=== PATIENT | male | born 1990 | race Caucasian/White ===

== ENCOUNTER 2025-02-01 12:21 | Emergency (ER) | payer OTHER, SELFPAY ==
[2025-02-01 12:26] VITALS: BP 118/73; PULSE 98; RESP 16; TEMP 36.7; O2SAT 99
--- NOTE | 2025-02-01 12:26 | ED.URI ---
HPI - URI/Sore Throat General Chief Complaint: Upper Respiratory Infection Stated Complaint: Sore Throat Time Seen by Provider: 02/01/25 12:35 Source: patient Mode of arrival: ambulatory Limitations: no limitations History of Present Illness HPI Narrative: Manjinder is a 34-year-old male patient presenting to the clinic today with complaints of sore throat, nasal congestion, productive cough, and feeling feverish. Denies any known sick contacts. Denies any shortness of breath. Has been using Vicks vapo and acetaminophen. Related Data Home Medications ?Medication ?Instructions ?Recorded ?Confirmed ?Last Taken ?Type lisdexamfetamine 30 mg capsule mg 02/01/25 Unknown History (Vyvanse) Allergies Allergy/AdvReac Type Severity Reaction Status Date / Time No Known Allergies Allergy Verified 02/01/25 12:32 Review of Systems Review of Systems: Pertinent positives per HPI. Patient denies any fever, chills, rash, headache, visual changes, dizziness, cough, shortness of breath, chest pain, palpitations, nausea, vomiting, diarrhea, constipation, abdominal pain, or any urinary issues. PMFSH Comments At the time of my signature, I reviewed and agree with the nursing past medical, surgical, social, and family history. There is no relevant family history pertinent to the patient complaint. Exam Narrative: General: Well-developed, well nourished, in no apparent distress Head: Normocephalic, atraumatic Eyes: Pupils equally round and reactive to light bilaterally, EOM intact, sclera and conjunctive clear, no discharge, lids normal Ears: TMs intact and clear, ear canals clear, no drainage, grossly hearing normal. Nose: Nares patent, clear nasal discharge, no inflammation, no sinus tenderness. Mouth: Oral pharynx red with bilateral tonsillar enlargement without lesions or masses, good dentition, MMM. Neck: Supple, trachea midline, no enlargement of anterior or posterior cervical nodes, no thyroid masses or goiter palpable. Cardio: Regular rate and rhythm, s1 and s2 normal, no murmur appreciated. Resp: Clear to auscultation bilaterally, no rhonchi, rales, wheezing or rubs Course Course Emergency Course: Portions of this record may have been created with voice recognition software. Level of Care: Express Care Visit Vital Signs Vital signs: Vital Signs Temperature 36.7 C 02/01/25 12:26 Pulse Rate 98 02/01/25 12:26 Respiratory Rate 16 02/01/25 12:26 Blood Pressure 118/73 02/01/25 12:26 Pulse Oximetry 99 02/01/25 12:26 Oxygen Delivery Room Air 02/01/25 12:26 Temperature 36.7 C 02/01/25 12:26 Pulse Rate 98 02/01/25 12:26 Respiratory Rate 16 02/01/25 12:26 Blood Pressure 118/73 02/01/25 12:26 Pulse Oximetry 99 02/01/25 12:26 Oxygen Delivery Room Air 02/01/25 12:26 Vital signs reviewed MDM - URI/Sore Throat MDM Narrative Medical decision making narrative: At the time of visit patient is resting comfortably on the exam table. Patient appears to be nontoxic. Labs: COVID, influenza, and strep test were performed in the clinic today. Strep test was negative. We will send strep for culture. Plan: I suspect patient has URI/pharyngitis/viral syndrome. Supportive measures were discussed with the patient and they voiced understanding discharge instructions and agrees to treatment plan. Return precautions reviewed Differential Diagnosis Differential diagnosis: Likely upper respiratory infection, otitis media, sinusitis, viral infection, bronchitis, influenza, pharyngitis and other (COVID) Discharge Plan Discharge Clinical Impression: Upper respiratory infection Qualifiers: URI type: unspecified URI Qualified Code(s): J06.9 - Acute upper respiratory infection, unspecified Pharyngitis Qualifiers: Pharyngitis/tonsillitis etiology: unspecified etiology Qualified Code(s): J02.9 - Acute pharyngitis, unspecified Patient Disposition: Home Condition: Stable Instructions: Antibiotic Form, Pharyngitis (ED), Viral Syndrome (ED), Cold Symptoms (ED) Additional Instructions: COVID, influenza, and strep test were all negative in the clinic today. We will send strep for culture if this comes back positive we will contact him place you on antibiotics at this time. May take DayQuil/NyQuil for cold/flu symptoms Increase fluids and stay well hydrated Tylenol/motrin for pain/fever Flonase and OTC antihistamines as directed Vicks vapor rub to open sinuses Sinus rinses for congestion Cepacol spray, cough drops, throat lozenges, warm tea with honey/lemon, gargle salt water to soothe throat BRAT diet for diarrhea Clear liquids x 24 hours then advance as tolerated for nausea/vomiting Go to the ED if you develop a worsening in your condition- high fever not controlled by Tylenol or Motrin, dehydration, weakness, lethargy, shortness of breath, or chest pain. Follow up with your PCP in 3-5 days if symptoms persist. Patient Language: Kazakh Prescriptions: No Action lisdexamfetamine [Vyvanse] 30 mg capsule Follow-up/Referrals: [facility], [Primary Care Provider] - Stand Alone Forms: Work/School Release IP Time of Disposition: 12:54 Quality NIHSS Nursing Documentation ED NIHSS nursing documentation: reviewed/agree
[2025-02-01 13:00] LABS: EDCOVIDSCREEN Negative (Negative); EDINFLUASCREEN Negative (Negative); EDINFLUBSCREEN Negative (Negative); EDSTREPNEGPOS1 Negative (Negative)
--- OUTSIDE RECORDS SUMMARY | 2025-02-01 14:17 | XMS_ITS | Clinical Summary ---
Author Organization [facility] Address [address] [place] [address] Care Team Providers Care Last Scourer Name Role Phone Jerrell Chen Primary Care Provide r Sandor Gilliam MD Unavailable [phone] Allergies No known active allergies Medications buPROPion XL (WELLBUTRIN XL) 300 mg 24 hr tabletIndicatio ns:Anxiety with Depression Take 1 tablet (300 mg total) by mouth every morning Active benzoyl peroxide 5 % external liquid Apply topically as needed (acne) 4 Active testosterone cypionate (DEPO-TESTOTERO NE) 200 mg/mL injection Inject 1 mL (200 mg total) into the muscle as instructed every 14 (fourteen) days Active ibuprofen (ADVIL,MOTRIN) 600 mg tablet Take 1 tablet (600 mg total) by mouth every 8 (eight) hours as needed for pain 20 tablet 1 4 Active oxyCODONE (ROXICODONE) 5 mg immediate release tabletIndicatio ns:Pain Take 1 tablet (5 mg total) by mouth every 8 (eight) hours as needed for pain 5 tablet 4 Active Active Problems Problem Noted Date Diagnosed Date Admission for vasectomy 03/30/2024 Vasectomy evaluation 03/28/2024 Overview (03/28/2024): 03/28/24: NC. Vasectomy evaluation. Sleep apnea 02/29/2024 Surgical History Surgery Date Site/Laterality Comments HERNIA REPAIR 08/24/2010 - 08/23/2011 Medical History Medical History Date Comments Sleep apnea 02/29/2024 Family History Medical History Relation Name Comments Anesthesia problems Neg Hx Social History Tobacco Use Types Packs/Day Years Used Date Smoking Tobacco: Never Smokeless Tobacco: Former Chew Tobacco Cessation:Counseling Given: Not Answered AUDIT-C Answer Date Recorded Q1: How often do you have a drink containing alcohol? 4 or more times a week 04/14/2024 Q2: How many drinks containi ng alcohol do you have on a typical day when you are drinking? 3 or 4 Q3: How often do you have si x or more drinks on one occasion? Monthly 04/14/2024 Personal Safety Answer Date Recorded Have you ever been in or are you currently in a harmful physical or emotional relationship or is someone making you feel afraid or unsafe? 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 Gender Identity Not on file Sexual Orientation Not on file Obstetrics History Last Filed Vital Signs Vital Sign Reading Time Taken Comments Blood Pressure 125/63 05/03/2024 8:30 AM CDT Pulse 69 05/03/2024 8:40 AM CDT Temperature 36.2 C (97.2 F) 05/03/2024 8:40 AM CDT Respiratory Rate 37 05/03/2024 8:40 AM CDT Oxygen Saturation 98% 05/03/2024 8:40 AM CDT Inhaled Oxygen Concentration - - Weight 109 kg (240 lb 3.2 oz) 05/03/2024 6:29 A M CDT Height 188 cm (6' 2.02) 05/03/2024 6:29 AM CDT Body Mass Index 30.83 05/03/2024 6:29 AM CDT Plan of Treatment Health Maintenance Due Date Last Done Comments Depression Screening 1991 Hepatitis C Screening 1991 Regular Well Visit/Exam 18-64 2009 Varicella Vaccines (2 of 2 - 13+ 2-dose series) 06/24/2010 02/01/2009 Covid-19 Vaccine ( season) 2024 05/13/2021, 04/22/2021 Influenza Vaccine (Season Ended) 2025 06/08/2021, 06/02/2020, 07/08/2019, Additional history exists DTaP/Tdap/Td Vaccine (3 - Td or Tdap) 03/15/2029 03/15/2019, 01/30/2009 Hepatitis B Screening Completed 02/01/2009 HPV Vaccines Aged Out No longer eligi ble based on patient's age to complete this topic Pneumococcal vaccine <65 Aged Out No longer eligible based on patient's age to complete this topic Insurance [facility] Care Teams Last Scourer Relationship Specialty Start Date End Date Jerrell Chen PA [address] [place] [address] PCP - General Physician Facialist 03/22/24 Sandor Gilliam MD [address] [place] [address] Consulting Physician Urology 05/03/24
--- OUTSIDE RECORDS SUMMARY | 2025-02-01 14:17 | XMS_ITS | Referral Summary ---
Author Organization [facility] Address [address] [place] [address] Care Team Providers Care Energy Conservation Director Name Role Phone Jerrell Chen Primary Care Provide r Sandor Gilliam MD Unavailable [phone] Allergies No known active allergies Medications buPROPion [...] 03/28/24: NC. Vasectomy evaluation. 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 Gender Identity Not on file Sexual Orientation Not on file Last Filed Vital Signs Vital Sign Reading Time Taken Comments Blood Pressure 125/63 05/03/2024 8:30 AM CDT Pulse 69 05/03/2024 8:40 AM CDT Temperature 36.2 C (97.2 F) 05/03/2024 8:40 AM CDT Respiratory Rate 37 05/03/2024 8:40 AM CDT Oxygen Saturation 98% 05/03/2024 8:40 AM CDT Inhaled Oxygen Concentration - - Weight 109 kg (240 lb 3.2 oz) 05/03/2024 6:29 AM CDT Height 188 cm (6' 2.02) 05/03/2024 6:29 AM CDT Body Mass Index 30.83 05/03/2024 6:29 AM CDT Plan of Treatment Not on file Insurance [facility] Care Teams Energy Conservation Director Relationship Specialty Start Date End Date Jerrell Chen PA [address] [place] [address] PCP - General Physician Family Coach 03/22/24 Sandor Gilliam MD [address] [place] [address] Consulting Physician Urology 05/03/24
--- OUTSIDE RECORDS SUMMARY | 2025-02-01 14:17 | XMS_ITS | Data Portability ---
Author Organization [place] [facility], Main Office Address [address] [place] [address] Assessment Encounter Date Assessment Date Assessment LastModified by Organization Details LastModified Time 02/29/2024 02/29/2024 Assessment: KEITH PLMD Hypoventilation Plan: The following were reviewed and explained to the patient: primary care/referral note General information on sleep disordered breathing, evaluation of sleep disordered breathing, treatment with PAP therapy, and living with PAP therapy were covered. Chapter 1 of educational DVD was shown. PSG is medically necessary to determine the degree of and management of sleep apnea. We discussed with the patient the impact of weight on: Sleep disordered breathing Low back pain We discussed with the patient the benefit of PAP therapy on: Sleep disordered breathing Anxiety Educated the patient on sleep hygiene measures. Relaxing rituals to rest easy, understanding foods with positive and negative impact on sleep, creating a peaceful sleep environment, timing of exercise, using herbal sleep aids, and practicing sleep-friendly meditation were covered. To determine how much sleep is needed, the patient will assess where he falls on the spectrum, examine what lifestyle factors such as work schedules and stress are affecting the quality and quantity of sleep. In general, adults need 7-9 hours of sleep. Educated the patient regarding foods that promote sleep. These include but are not limited to cherries, bananas, toast, oatmeal, and warm milk. Educated the patient regarding foods and drinks to avoid before bedtime. These include but are not limited to aged cheese, chocolate, spicy foods, tomato-based sauces, soy, ginseng tea and processed meat. Advocated influenza vaccination annually and pneumonia vaccination PATRIA. Advocated weight loss through diet and exercise. Patient's ideal body weight according to height and gender is up to 205 lbs. Encouraged patient to adjust caloric intake to maintain/achieve ideal body weight, emphasizing on fruits, vegetables, whole grains, and fat-free or low-fat products. These include lean meats, poultry, fish, beans, eggs, and nuts and foods that are low in saturated fats, trans-fats, cholesterol, salt (sodium), and glycemic index. Stressed the importance of regular exercise up to the patient's capacity limits. In this case, we recommend 20 min daily walking, 2 days a week of resistance training. Patient to monitor BP daily and bring records to PCP for further management. Follow-up: 1 week after diagnostic sleep study Not available 02/29/2024 10:22:53 05/11/2024 05/11/2024 Assessment: Early REM onset Moderate OSHS, HI = 23 Plan: The following were reviewed and explained to the patient: primary care/referral note [facility] split night sleep study 05/09/24 sleep onset = 1.5 minutes, REM onset = 44.5 minutes, HI = 19, REM HI = 23, supine HI = 25, Temitope small/mediun Nelly full face mask @ 12-20 cmH2O, PLMI = 0.0 Educated the patient on problems and solutions associated with positive airway pressure (PAP) use. Difficulty tolerating pressure, mask leaks, intolerance of interface, nasal congestion, claustrophobic response, dry mouth, and unintentional mask removal during sleep were covered. Patient experiences claustrophobic response. Patient will practice wearing PAP mask daily while awake and undergo PAP desensitization. We will check fit of patient's mask and provide a sleeker alternative as necessary. Dry mouth is a normal occurrence for people who just start out on PAP therapy because they are not used to air blowing in to the throat to hold open. Dry mouth is exacerbated for people who wear nasal PAP mask and whose jaw drops open during sleep. Not only does this create a much less efficient therapy because of leakage, it also causes dry mouth. There are a couple solutions to help prevent this type of problem. A simple solution would be to wear a chinstrap which essentially holds the jaw in place. A second solution would be a switch to a full face mask which covers both the nose and mouth. Although this is another easy solution, using a full face mask for some could seem claustrophobic or confining. There is no silver bullet solution as no single mask is right for everybody. Sometimes it takes a bit of experimentation to find a PAP mask which best meets the patient's needs as well as fits comfortably. Another tactic is to use a humidifier on your PAP machine. Most new PAP machines have integrated humidifiers. Humidification is del rio when dealing with symptoms of dry mouth because the humidifier can supply both warm and room temperate air. Even a small amount of humidity in the airflow will help nasal passages to stay hydrated. If a person is using both a full face mask and a PAP machine with a heated humidifier and is still experiencing dry mouth, an ill-fitted PAP mask might be causing the problem. Leakage can be caused by a mask that is to large or small, the wrong style mask, the cushion is degraded or simply because the mask's straps aren't adjusted correctly. If leakage occurs, dry air from the room can leak in while humidification escapes. The result is reduced humidification within the circuit and resulting in dry throat and mouth. Finally, beyond factors involving the PAP machine and mask, dry mouth can also be caused or worsened by dehydration. The general recommendation to during eight 8 oz. glasses of water a day might be too little for many people. When people drink large amounts of coffee or other caffeine beverages, or sweat a lot during the day, making sure to rehydrate is an important part of PAP therapy. ResMed Air Sense 11 auto set unit with heated humidifier, supplies, Temitope small/mediun Nelly full face mask @ 12-20 cmH2O ordered. Further titration will be based on clinical response. Provided the patient with a list of local home care stores where positive airway pressure (PAP) units, accoutrement, and services are available. Home care store selection is based on patient's insurance carrier. Patient will setup an appointment with [facility] for supplies and pressure adjustments. A major predictor of success with use of PAP is follow-up with both the respiratory supplier and the treating physician. The respiratory supplier optimally will follow-up within two weeks after starting use while the treating physician optimally will follow-up within 90 days after starting therapy to assess adherence and effectiveness of treatment. The download results can show the treating physician information about adherence to treatment, residual AHI while on treatment and presence of large mask leakage. This information is especially helpful if the patient has residual sleepiness despite treatment. General information on sleep disordered breathing, evaluation of sleep disordered breathing, treatment with PAP therapy, and living with PAP therapy were covered. We discussed with the patient the impact of weight on: Sleep disordered breathing Low back pain We discussed with the patient the benefit of PAP therapy on: Sleep disordered breathing Anxiety Educated the patient on sleep hygiene measures. Relaxing rituals to rest easy, understanding foods with positive and negative impact on sleep, creating a peaceful sleep environment, timing of exercise, using herbal sleep aids, and practicing sleep-friendly meditation were covered. To determine how much sleep is needed, the patient will assess where he falls on the spectrum, examine what lifestyle factors such as work schedules and stress are affecting the quality and quantity of sleep. In general, adults need 7-9 hours of sleep. Educated the patient regarding foods that promote sleep. These include but are not limited to cherries, bananas, toast, oatmeal, and warm milk. Educated the patient regarding foods and drinks to avoid before bedtime. These include but are not limited to aged cheese, chocolate, spicy foods, tomato-based sauces, soy, ginseng tea and processed meat. Advocated influenza vaccination annually and pneumonia vaccination PATRIA. Advocated weight loss through diet and exercise. Patient's ideal body weight according to height and gender is up to 205 lbs. Encouraged patient to adjust caloric intake to maintain/achieve ideal body weight, emphasizing on fruits, vegetables, whole grains, and fat-free or low-fat products. These include lean meats, poultry, fish, beans, eggs, and nuts and foods that are low in saturated fats, trans-fats, cholesterol, salt (sodium), and glycemic index. Stressed the importance of regular exercise up to the patient's capacity limits. In this case, we recommend 20 min daily walking, 2 days a week of resistance training. Patient to monitor BP daily and bring records to PCP for further management. Follow-up: 3 months, July 2024 Not available 05/11/2024 09:56:10 Plan of Treatment Reminders Order Date Submit Date Provider Last Modified By Organization Details Last Modified Time Details Appointments None recorded. Lab None recorded. Referral None recorded. Procedures None recorded. Surgeries None recorded. Imaging polysomnog page, diagnostic , 6 yrs or older - Approved Auth #[id number] 03/08/2024 - 5 2023 024 [facility], [address] [place], [address], 4 17:29:32 Medication Orders None recorded. Patient TargetsNo targets recorded. Patient InstructionsNo instructions recorded. Reason for Referral None Reported. Results Created Date Observation Date Name Description Value Unit Range Abnormal Flag Note LastModifiedBy Organization Detail LastModifiedTime 05/11/20 24 05/09/2024 polys omnog page, diagn ostic , 6 yrs or older No observ ation record ed. [facility] [address] [place], [address], 05/11/2024 17:29:32 05/12/20 24 05/09/2024 polys omnog page, diagn ostic , 6 yrs or older No observ ation record ed. [facility] [address] [place], [address], 05/12/2024 12:35:19 Result Notes None recorded. Problems Name Problem SNOMED Code Status Onset Date Resolution Date Notes Provider Name and Address Organization Details Recorded Time Sleep apnea 82108322 Active 024 Chivo Jimenez MD [address] [facility], [address] [place] [address], [place], [address], [place] 4 09:59:48 Obstructive sleep apnea syndrome 31166064 Active 024 Chiov Jimenez MD [address] [facility], [address], [place], [address], [place] 4 09:55:30 Notes:Medical History: Acne Anxiety Bilateral tinnitus Obesity with mod OSHS, HI = 19, 05/09/24, on autoCPAP c/o IVRC Low back pain Procedure History: Right inguinal herniorrhaphy 2010 Bilateral photorefractive keratotomy 2017 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 Procedures Surgical History Date Name Laterality Status Provider Name and Address Organization Details Recorded Time 02/21/2011 hernia repair completed Jory Dacosta CMA [employer] 02/29/2024 09:46:37 Imaging Results None recorded. Procedure Notes None recorded. Medical Equipment None Reported. Allergies No known drug allergies Medications Name Sig Start Date Stop Date Status Note LastModified by Organization Details LastModified Time ketoconazole 2 % shampoo 07/24 completed Not Available Not Available Not Available azithromycin 250 mg tablet TAKE 4 TABLETS BY MOUTH ONCE DAILY- TAKE ALL TABLETS AT ONCE(WIT H OR WITHOUT FOOD) 02/28 completed Not Available Not Available Not Available naltrexone 50 mg tablet active Not Available Not Available Not Available doxycycline monohydrate 100 mg capsule TAKE 1 CAPSULE BY MOUTH EVERY 12 HOURS WITH A GLASS OF WATER 02/28 completed Not Available Not Available Not Available bupropion HCl 75 mg tablet 07/24 completed Not Available Not Available Not Available ibuprofen 600 mg tablet 07/24 completed Not Available Not Available Not Available benzoyl peroxide 5 % topical cleanser 07/24 completed Not Available Not Available Not Available levofloxacin 500 mg tablet 05/10 completed Not Available Not Available Not Available doxycycline hyclate 20 mg tablet 02/28 completed Not Available Not Available Not Available doxycycline hyclate 100 mg tablet 02/28 completed Not Available Not Available Not Available clindamycin phosphate 1 % topical solution 07/24 completed Not Available Not Available Not Available oxycodone 5 mg tablet active Not Available Not Available No t Available bupropion HCl XL 300 mg 24 hr tablet, extended release active Not Available Not Available Not Available bupropion HCl XL 150 mg 24 hr tablet, extended release 02/28 completed Not Available Not Available Not Available Vitals Date Recorded Heart rate Respiratory rate Provider N daniella and Address Organization Details Last Updated DateTime 02/29/2024 64 /min 15 /min Chivo Jimenez MD [address] [facility] [address], [place], [address], [place] [facility] [employer] 02/29/2024 10:25:31 Date Recorded Body weight Body mass index (BMI) Body height Body temperature Heart rate Oxygen saturation Oxygen saturation in Arterial blood by Pulse oximetry Systolic blood pressure Diastolic blood pressure Provider Name and Address Organization Details Last Updated DateTime 4 741611. 98 g 30.6 kg/m2 187.96 cm 98.3 [degF] 64 /min 98 % 98 % 122 mm[Hg] 70 mm[Hg] Jory Dacosta CMA [place] [facility] [employer] 07/08/202 4 09:42:54 Date Recorded Heart rate Respiratory rate Provider N dnaiella and Address Organization Details Last Updated DateTime 05/11/2024 77 /min 14 /min Chivo Jimenez MD [address], [facility] [address], [place], [address], [facility] [employer] 05/11/2024 10:02:54 Date Recorded Body height Body mass index (BMI) Body weight Heart rate Oxygen saturation Oxygen saturation in Arterial blood by Pulse oximetry Body temperature Systolic blood pressure Diastolic blood pressure Provider Name and Address Organization Details Last Updated DateTime 187.96 cm 30.3 kg/m2 188103. 8 g 77 /min 98 % 98 % 98.1 [degF] 120 mm[Hg] 70 mm[Hg] Jory Dacosta CMA [employer] [facility] [employer] 4 09:26:54 Social History Question Answer Notes LastModified by Organizat ion Details LastModified Time Tobacco Smoking Status Never Smoker Jory Dacosta CMA null, [employer] [facility] [employer] 02/29/2024 09:47:43 Is Blood Transfusion Acceptable In An Emergency? Yes [email or web address] Information not available 02/29/2024 What Is Your Level Of Caffeine Consumption? Heavy Information not available 02/29/2024 In The 14 Days Before Symptom Onset, Have You Had Close Contact With A Laboratory-confirm ed COVID-19 While That Case Was Ill? No [email or web address] Information n ot available 02/29/2024 In The 14 Days Before Symptom Onset, Have You Had Close Contact With A Person Who Is Under Investigation For COVID-19 While That Person Was Ill? No [email or web address] Information not available 02/29/2024 What Type Of Diet Are You Following? REGULAR [email or web address] Information n ot available 02/29/2024 How Many Children Do You Have? 3 Information not available 02/29/2024 Do You Have Any Pets? Yes 1 Dog [email or web address] Information not available 02/29/2024 What Is Your Relationship Status? Information not available 02/29/2024 Do You Have Smoke And Carbon Monoxide Detectors In Your Home? Yes Information not available 02/29/2024 Are You Passively Exposed To Smoke? No [email or web address] Information no t available 02/29/2024 Do You Use Sunscreen Routinely? No Information not available 02/29/2024 Have You Recently Traveled Abroad? No [email or web address] Information not available 02/29/2024 Sex: Unknown Functional Status Question Answer Note LastModified by Organizat ion Details LastModified Time Do you use any illicit or recreational drugs? No [email or web address] Information not available 02/29/2024 What is your level of alcohol consumption? Moderate Information not available 02/29/2024 Are you currently employed? Yes [email or web address] Information not available 02/29/2024 What is your occupation? [email or web address] Information not available 02/29/2024 What is your exercise level? Moderate [email or web address] Information not available 02/29/2024 Mental Status Question Answer Note LastModified by Organization D etails LastModified Time Do you feel stressed (tense, restless, nervous, or anxious, or unable to sleep at night)? [id number] [email or web address] Information not available 02/29/2024 Family History Relationship Description Onset Age of this Age Resolved Age Notes LastModified by Organization Details LastModified Time Mother Diabetes mellitus [email or web address] Not available 2023 09:45:56 Father Obstructive sleep apnea syndrome [email or web address] Not available 2023 10:16:49 Father Hypertensive disorder [email or web address] Not available 2023 10:17:29 Father Diabetes mellitus [email or web address] Not available 2023 10:17:35 Maternal Grandfather Obstructive sleep apnea syndrome [email or web address] Not available 2023 10:16:59 Paternal Grandmother Malignant neoplasm of skin [email or web address] Not available 2023 10:18:11 Medical History No medical history recorded. Past Encounters Encounter ID Performer Location Encounter Start Date Encounter Closed Date Diagnosis/Indication Diagnosis SNOMED-CT Code Diagnosis ICD10 Code Diagnosis Note [id number] Chivo Jimenez MD [facility] [address] [address] 02/29/2024 09:23:51 03/01/2024 09:24:05 Sleep apnea 19581071 G47.30 G47.33 G47.36 G47.61 [id number] MD ZARI Stratton_KIARA Camposolo gy [address] [address] 05/11/2024 09:19:16 05/11/2024 10:42:04 Obstructive sleep apnea syndrome 36594217 G47.33 Health Concerns Section Related Observation LastModified by Organization Detai ls LastModified Time None Recorded Concern Status LastModified by Organization Details LastModified Time None Recorded Advance Directives Directive None Recorded Payers Encounter Date Sequence Insurance Name Policy Number Policy Cardona Covered Member ID Cardona Member ID Guarantor Name 02/29/2024 1 [employer] () Manjinder Sosa [id number] Manjinder Sosa 05/11/2024 1 [employer] () Manjinder Sosa [id number] Manjinder Sosa Notes Date Note Type Note Provider Name and Address Organization Details Recorded Time 02/29/2024 text/html Primary care/Ref erring provider: Sandor York PA-C At home, the patient sleeps from 10 pm to 6 am and wakes up with an alarm. Snoring: heavy, since . Snorting: yes Choking: no Coughing: no Gasping: no Gagging: no Sighing: yes Witnessed apnea: yes Twitching or jerking of leg(s), arm(s), body, head: yes Teeth grinding: no Teeth clenching: no Sleeptalking: yes Sleepwalking: no Sleep crying: no Bedwetting: no Tongue/lip/gum/cheek biting: no Sleeping with open mouth: yes Sleep paralysis: no Hypnagogic hallucinations: no Hypnopompic hallucinations: no Vivid dreams: yes, arms reaching out Difficulty with sleep onset: yes Difficulty with sleep maintenance: yes Sleep interruptions: for no known reasons Patient wakes up with: fatigue, xerostomia, headaches, disorientation, cognitive impairment, mobility impairment, dexterity impairment Daytime cataplexy: no Morning hypersomnolence: yes Afternoon hypersomnolence: yes Caffeine sources in diet: coffee 1.5 cups per day, soda 1/2 can per day, chocolate 1 candy bar per week, energy drink 1 can of Monster/Celsius/Rockst ar per day Associated medical and psychiatric conditions: Congestive heart failure: no Coronary artery disease: no Myocardial infarction: no Hypertension: no Stroke: no Bronchial asthma: no Chronic obstructive pulmonary disease: no Depression: no Bipolar disorder: no Anxiety: yes Panic disorder: no Posttraumatic stress disorder: no Attention deficit and hyperactivity disorder: no Obsessive Compulsive disorder: no Schizophrenia: no Schizoaffective disorder: no Personality disorder: no Chronic analgesic use: no Chronic sedative/hypnotic use: no EPWORTH SLEEPINESS SCALE (ESS) CHANCE OF DOZING SCORE 0 = would never doze 1 = slight chance of dozing 2 = moderate chance of dozing 3 = high chance of dozing SITUATION AND CHANCE OF DOZING Sitting and reading - 3 Watching television - 3 Sitting inactive in a public place (e.g. a theater or meeting) - 3 As a passenger in a car for an hour without a break - 3 Lying down to rest in the afternoon when circumstances permit - 3 Sitting and talking to someone - 0 Sitting quietly after lunch without alcohol - 3 In a car, while stopped for a few minutes in the traffic - 3 TOTAL SCORE 21 Subjectively, patient has a high chance of dozing. Chivo Jimenez MD [address] [place] [address], [facility] [address], [place], [address], [place] [facility] [employer] 02/29/2024 10:25:41 05/11/2024 text/html Primary care/Ref erring provider: Sandor York PA-C During the [facility] split night sleep study 05/09/24, sleep onset = 1.5 minutes, REM onset = 44.5 minutes, HI = 19, REM HI = 23, supine HI = 25, PLMI = 0.0. The patient uses a ResMed AirSense 11 autoset unit with heated humidification. The patient does not need the ramp to start low and go up slowly on the pressure. There is some xerostomia in a.m. There is no hose/mask condensation with water. The patient wears a [employer] small/mediun Nelly full face mask without chin strap. There is no claustrophobia, no nostril/nose bridge irritation, no facial rash, no facial numbness, no nosebleeding. The patient feels more refreshed upon waking and daytime alertness is improved. Energy levels are sustained for the remainder of the day. At home, the patient sleeps from 10 pm to 6 am and wakes up with an alarm. Snoring: heavy, since .Snorting: yesChoking: noCoughing: noGasping: noGagging: noSighing: yesWitnessed apnea: yesTwitching or jerking of leg(s), arm(s), body, head: yesTeeth grinding: noTeeth clenching: noSleeptalking: yesSleepwalking: noSleep crying: noBedwetting: noTongue/lip/gum/cheek biting: noSleeping with open mouth: yesSleep paralysis: noHypnagogic hallucinations: noHypnopompic hallucinations: noVivid dreams: yes, arms reaching outDifficulty with sleep onset: yesDifficulty with sleep maintenance: yesSleep interruptions: for no known reasonsPatient wakes up with: fatigue, xerostomia, headaches, disorientation, cognitive impairment, mobility impairment, dexterity impairmentDaytime cataplexy: noMorning hypersomnolence: yesAfternoon hypersomnolence: yesCaffeine sources in diet: coffee 1.5 cups per day, soda 1/2 can per day, chocolate 1 candy bar per week, energy drink 1 can of Monster/Celsius/Rockst ar per day Associated medical and psychiatric conditions:Congestive heart failure: noCoronary artery disease: noMyocardial infarction: noHypertension: noStroke: noBronchial asthma: noChronic obstructive pulmonary disease: noDepression: noBipolar disorder: noAnxiety: yesPanic disorder: noPosttraumatic stress disorder: noAttention deficit and hyperactivity disorder: noObsessive Compulsive disorder: noSchizophrenia: noSchizoaffective disorder: noPersonality disorder: noChronic analgesic use: noChronic sedative/hypnotic use: no EPWORTH SLEEPINESS SCALE (ESS) CHANCE OF DOZING SCORE0 = would never doze1 = slight chance of dozing2 = moderate chance of dozing3 = high chance of dozing SITUATION AND CHANCE OF DOZINGSitting and reading - 3Watching television - 3Sitting inactive in a public place (e.g. a theater or meeting) - 3As a passenger in a car for an hour without a break - 3Lying down to rest in the afternoon when circumstances permit - 3Sitting and talking to someone - 2Sitting quietly after lunch without alcohol - 3In a car, while stopped for a few minutes in the traffic - 3TOTAL SCORE 23Subjectively, patient has a high chance of dozing. Chivo Jimenez MD [address] [facility], [address] [address], [place], [address], [facility] [employer] 05/11/2024 10:03:10
== END 2025-02-01 12:56 | disposition home or self-care (01) ==
PROVIDERS: Emergency Provider Nurse Practitioner Family
DX: J06.9 Acute upper respiratory infection, unspecified (principal); J02.9 Acute pharyngitis, unspecified; Z20.822 Contact with and (suspected) exposure to COVID-19
CPT/HCPCS: 87081; 87426; 87804; 87880; 99213; G0463